=== PATIENT | male | born 1940 | race African-American/Black ===

== ENCOUNTER 2016-10-23 14:54 | Emergency (ER) | payer BC, OTHER ==
[~2016-10-23] VITALS: Ht 172.7 cm; Wt 85.0 kg
[2016-10-23] MEDS ORDERED: BENA20TA3 PO (16:39)
[2016-10-23] MEDS ORDERED: SIMV20TA6 PO (16:39)
[2016-10-23 17:29] LABS: BASOPHILS % 0.7 % (0.0-2.0); EOSINOPHILS % 3.9 % (0.0-5.0); HEMATOCRIT. 39.5 % (42.0-52.0); HEMOGLOBIN. 13.2 g/dL (14.0-18.0); LYMPHOCYTES % 46.2 % (20.0-50.0); MEAN CORPUSCULAR HEMOGLOBIN 29.9 pg (28.0-32.0); MEAN CORPUSCULAR HGB CONC 33.3 g/dL (31.0-37.0); MEAN CORPUSCULAR VOLUME 89.9 fL (80.0-94.0); MONOCYTES % 10.1 % (2.0-8.0); NEUTROPHILS % 39.1 % (40.0-76.0); PLATELET 155 x1000/uL (130-400); WHITE BLOOD COUNT 4.4 x1000/uL (4.5-11.0)
[2016-10-23 17:36] LABS: INR 1.1; PROTHROMBIN TIME 11.1 sec
[2016-10-23 17:44] LABS: ANION GAP 12; CALCIUM 8.6 mg/dL (8.5-10.1); CARBON DIOXIDE 29 mEq/L (21-32); CHLORIDE 105 mEq/L (98-107); INDEX HEMOLYSI 2 (1-3); INDEX ICTERIC 1 (1-4); INDEX LIPEMIC 1 (1-3); NT PRO B-TYPE NATRIURETIC PEP 100 pg/mL (5-125); TROPONIN I < 0.02 ng/mL (0.00-0.04); UREA NITROGEN BLOOD 18 mg/dL (7-21); eGFR 55 mL/min (>60)
[2016-10-23 18:15] LABS: *AMPHETAMINES SCREEN URINE NEGATIVE (NEGATIVE); *BARBITURATES SCREEN URINE NEGATIVE (NEGATIVE); *BENZODIAZEPINES SCREEN URINE NEGATIVE (NEGATIVE); *COCAINE SCREEN URINE NEGATIVE (NEGATIVE); CANNABINOID URINE SCREEN NEGATIVE (NEGATIVE); ECSTASY MDMA SCREEN URINE NEGATIVE (NEGATIVE); METHADONE URINE SCREEN NEGATIVE (NEGATIVE); OPIATES URINE SCREEN NEGATIVE (NEGATIVE); PHENCYCLIDINE URINE SCREEN NEGATIVE (NEGATIVE)
[2016-10-23] MEDS ORDERED: NAPROXEN 375MG TABLET PO ONE (18:30)
[2016-10-23 19:31] VITALS: BP 165/83
== END 2016-10-23 19:48 | disposition home or self-care (01) ==
LOC: ER 17:27
DX: M54.12 Radiculopathy, cervical region (principal); I10 Essential (primary) hypertension; E78.00 Pure hypercholesterolemia, unspecified
CPT/HCPCS: 36415; 71010; 72125; 80048; 80305; 83880; 84484; 85025; 85610; 93005; 99285